=== PATIENT | female | born 1960 | race Hispanic/Latino ===

== ENCOUNTER → 2024-06-10 | Outpatient (CLI) | payer OTHER, MEDICARE ==
[~2024-06-10] MED LIST: AMLO-257 PO; ATOR40TA69 PO; AZIT500T4 PO; CEFD300C3 PO; DAPA10TA PO; LISI40TA9 PO
--- NOTE | 2024-06-10 16:09 | HMCIMG ---
MR BRAIN WO CON HISTORY: Forgetfulness COMPARISON: None TECHNIQUE: MRI of the brain was performed utilizing multiple pulse sequences in axial, coronal and sagittal planes. Patient was not given contrast through intravenous route. FINDINGS: The ventricles and extraventricular CSF spaces are dilated consistent with cerebral atrophy. Nonspecific white matter changes are seen. There is no midline shift, mass effect or herniation. No subacute hemorrhage is seen. No MR evidence of acute infarct is seen in the diffusion weighted images. Cerebellar tonsils are in normal position. No evidence of mucoperiosteal thickening is seen of the visualized paranasal sinuses. No MR evidence of a mass lesion is seen in this noncontrast study. IMPRESSION: 1. No MR evidence of acute infarct is seen in the diffusion weighted images.
== END | disposition home or self-care (01) ==
LOC: RAH 14:32
PROVIDERS: ATTEND Internal Medicine
DX: G31.84 Mild cognitive impairment of uncertain or unknown etiology (principal)
CPT/HCPCS: 70551